=== PATIENT | female | born 1995 | race Caucasian/White ===

== ENCOUNTER 2017-10-19 13:51 | Emergency (ER) | payer SELFPAY ==
[2017-10-19 13:55] VITALS: BP 107/69; BMI 26.6
[2017-10-19] MEDS ORDERED: FUL-GLO STRIP ONE (14:30)
[2017-10-19] MEDS ORDERED: TETRACAINE HCL ONE (14:30)
[2017-10-19] MEDS ORDERED: FUL-GLO STRIP RIGHTEYE ONE (14:35)
[2017-10-19] MEDS ORDERED: TETRACAINE HCL AFFEYE ONE (14:35)
[2017-10-19] MEDS ORDERED: AUGMENTIN 500 MG/125 MG TAB PO ONE ×2 (14:42→14:49)
[2017-10-19] MEDS ORDERED: CLARITIN PO STA (14:42)
[2017-10-19] MEDS ORDERED: BENADRYL CAP 50 MG PO ONE (14:42)
[2017-10-19] MEDS ORDERED: PREDNISONE TAB 20 MG PO ONE ×2 (14:43→14:49)
--- NOTE | 2017-10-19 14:48 | DR.EYE ---
HPI - Time Seen Time seen: 14:44 - PCP Primary Care Physician: NFD - Nurses notes reviewed Nurses Notes Review: Yes - Complaint Chief Complaint Doctors Comments: Patient is complaining of pain and swelling right eyelid and eye for the past five hours. patient states she was hanging birthday streamers and think some of the glitter got into her right eye with swelling and itching. States her eye was itching and she started rubbing her eye with swelling of the lids. States she has been having nasal congestion with her right nostril stopped up. states she thought it may be an allergic reaction because he eyes and nose started running and itching and she took a Benadryl 25mg tablet. She denies sore throat, fever, chills, nausea or vomiting. Chief Complaint:: PT. C/O RIGHT EYE SWELLING. PT. THINKS SHE MAY HAVE GOTTEN SOMETHING IN HER EYE WHILE HANGING SOME STREAMERS UP ON A CELILING. PT. ALSO C/ O PAIN TO RIGHT EYE. - Source History Provided: Patient - Mode of arrival Mode of Arrival: Ambulatory - Timing Onset of Chief Complaint: 10/19/17 Came on: Suddenly - Quality Quality: Pain, FB sensation, Clear discharge - Location Location: Right eye - Context Onset: Spontaneous Recent: None History of: None Last Tetanus: Unknown - Severity Symptom severity: Mild - Associated signs and symptoms Associated signs and symptoms: Tearing PMH - PMH Past Medical History: No Past Surgical History: No Surgical History: No History - Family History History of Family Medical Conditions: No - Social History Does patient currently use any type of tobacco product: Yes Have you used tobacco products in the last 12 months: Yes Type of Tobacco Use: Cigarettes Does any household member use tobacco: Yes Alcohol Use: Occasionally Do you use any recreational Drugs:: No Lives With: Significant Other Lives Where: Home - infectious screening In the last 2 months have you had wt loss of >10#?: NO Have you had fever, night sweats or hemotysis?: No Have you traveled outside the country in the last 6 months?: No Isolation: Standard ROS - Review of Systems Constitutional: No Symptoms Reported. negative: See HPI, Chills, Diaphoresis, Fever, Malaise, Weakness, Irritable, Fatigue, Loss of Appetite, Other Eyes: No Symptoms Reported, Eye Pain, Blurred Vision, Tearing ENTM: No Symptoms Reported, Nose Discharge, Nose Congestion Respiratoy: No Symptoms Reported. negative: See HPI, Productive Cough, Non- Productive Cough, Moist Cough, Dry Cough, Hacking Cough, Barking Cough, Brassy Cough, Orthopnea, Short of Breath, Stridor, Wheezing, Hemoptysis, Other Cardiovascular: No Symptoms Reported Gastrointestinal/Abdominal: No Symptoms Reported Genitourinary: No Symptoms Reported. negative: See HPI, Discharge, Dysuria, Frequency, Hematuria, Pain, Bleeding, Other Neurological: No Symptoms Reported Musculoskeletal: No Symptoms Reported Integumentary: No Symptoms Reported. negative: See HPI, Change in Color, Change in Hair/Nails, Dryness, Lesions, Lumps, Rash, Itching, Wound, Bruises, Juandice, Other Hematologic/Lymphatic: No Symptoms Reported Endocrine: No Symptoms Reported Psychiatric: No Symptoms Reported PE - Vital Signs Vitals: Temperature 97.7 F Pulse Rate 79 Respiratory Rate 17 Blood Pressure 107/69 O2 Sat by Pulse Oximetry 98 - General Limitations: No Limitations General Appearance: Alert, In Distress (slight) - Head Head Exam: Normal Inspection, Atraumatic, Normocephalic - Eyes Eye exam: Normal Appearance, PERRL, EOMI, Periorbital Swelling (right eyelid swelling). negative: Scleral Icterus, Conjunctival Injection, Nystagmus, Miosis , Mydrasis, Periorbital Tenderness, Other Eyelids: Normal Inspection: Left, Swelling Eyelid: Right (right eyelid swelling) Pupils: Regular, Round: Bilateral, Reactive: Bilateral Sclera/Conjunctival: Normal Inspection: Bilateral Anterior Chamber: Normal Inspection: Bilateral Posterior Chamber: Normal Inspection: Bilateral - ENT ENT Exam: Normal Exam, Normal Oropharynx, Normal External Ear Exam, Mucous Membranes Moist, TM's Normal Bilaterally (right nasal congestion with purulent secretion) External Ear Exam: Normal External Inspection TM/Canal Exam: Bilateral Normal Nose Exam: Normal Nose Exam Mouth Exam: Normal Inspection Throat Exam: Normal Inspection. negative: Tonsillar Erythema, Tonsillomegaly, Tonsillar Exudate, R Peritonsillar Mass, L Peritonsillar Mass, Muffled Voice, Other - Neck Neck Exam: Normal Inspection, Full ROM, Trachea Midline - Chest Chest Inspection: Normal Inspection, Symmetric Chest Wall Rise - Respiratory Respiratory Exam: Normal Lung Sounds Bilat Respiratory Exam: Bilateral Clear to Auscultation - Cardiovascular Cardiovascular Exam: Regular Rate, Normal Rhythm, Normal Heart Sounds - Abdominal Exam Abdominal Exam: Normal Inspection, Normal Bowel Sounds, Soft Abdominal Tenderness: negative: RUQ, RLQ, LUQ, LLQ, Epigastrium, Suprapubic, Diffuse, Mild, Moderate, Severe, Other - Extremities Extremities Exam: Normal Inspection, Full ROM, Normal Capillary Refill. negative: Tenderness, Edema, Joint Swelling, Calf Tenderness, Other - Back Back Exam: Normal Inspection, Full ROM. negative: Tenderness, (R) CVA Tenderness, (L) CVA Tenderness, Muscle Spasm, Paraspinal Tenderness, Vertebral Tenderness, Rashes, (R) Sciatic Notch Tenderness, (L) Sciatic Notch Tendern, (R ) Straight Leg Raise, (L) Straight Leg Raise, Other - Neurologic Neurological Exam: Alert, Oriented X3, CN II-XII Intact, Normal Gait, Reflexes Normal - Psychiatric Psychiatric Exam: Normal Affect, Normal Mood - Skin Skin Exam: Warm, Dry, Intact, Normal Color Type of Lesion: negative: Rash, Abscess, Laceration, Foreign Body, Bite/Sting, Abrasion, Other Distribution: negative: Generalized, Involves Palms/Soles, Head, Face, Neck, Thorax, Chest, Back, Abdomen, Genitals, LUE, LLE, RUE, RLE, Other Procedures - Procedure Comments Procedures: Irrigation right eye; flouroscien stain without uptake or abrasion; swelling right upper eye lid; conjunctiva clear; no discharge or erythema. - Eye Procedure Alcaine Drops Administered: Yes Eye Irrigated w/ Saline (ccs): 40 Cyclogel 2 Drops Administered: right eye - Diagnosis Discharge Problem: Pain, eye, right, Allergic reaction Sinusitis, acute Qualifiers: Sinusitis location: maxillary - Discharge Plan Disposition: 01 HOME, SELF-CARE Condition: Stable Prescriptions: Amoxicillin 500 mg PO TID #30 cap Diphenhydramine HCl [BENADRYL 50 MG CAP *] 50 mg PO Q8H #30 cap Fluticasone Nasal [employer] [FLONASE NASAL SPRAY *] 2 sprays ENOSTRIL DAILY #1 each Loratadine [Claritin] 10 mg PO DAILY #30 tab - Follow ups/Referrals Follow ups/Referrals: DENISSE,None [Primary Care Provider] - 3 days JENA KOENIG [STAFF PHYSICIAN] - 3 days - Instructions Instructions: Sinusitis, Adult, [id number], Allergic Conjunctivitis, Easy-to- Read
[2017-10-19] MEDS ORDERED: CLARITIN ONE (14:49)
[2017-10-19] MEDS ORDERED: BENADRYL CAP/TAB 25 MG PO ONE (14:49)
== END 2017-10-19 15:02 | disposition home or self-care (01) ==
LOC: ER 14:00
PROC: 3E1 Administration, Physiological Systems and Anatomical Regions, Irrigation (ICD-10-PCS; principal; 2017-10-19)
DX: H57.11 Ocular pain, right eye (principal); T78.40XA Allergy, unspecified, initial encounter; J01.80 Other acute sinusitis
CPT/HCPCS: 99282; J7506